=== PATIENT | female | born 1945 | race Caucasian/White ===

== ENCOUNTER 2017-06-28 06:46 | Inpatient (IN) | payer OTHER ==
[~2017-06-28] VITALS: Ht 172.7 cm; Wt 95.9 kg
[2017-06-28] MEDS ORDERED: SODIUM CHLORIDE FLUSH 10ML SYR IVF ONE (07:00)
[2017-06-28 07:19] LABS: INTERNATIONAL NORMALIZED RATIO 0.91 (0.93-1.1); PROTHROMBIN TIME 9.5 Seconds (9.6-11.5)
[2017-06-28 07:20] LABS: BASOPHILS # (AUTO) 0.03 x10^3/uL (0-0.1); BASOPHILS % (AUTO) 1 % (0-1); EOSINOPHILS # (AUTO) 0.09 x10^3/uL (0-0.4); EOSINOPHILS % (AUTO) 2 % (1-7); LYMPHOCYTES % (AUTO) 44 % (22-44); MD NO; MEAN CORPUSCULAR HEMOGLOBIN 31.1 pg (27.0-34.8); MEAN CORPUSCULAR HGB CONC 33.1 g/dL (32.4-35.8); MEAN CORPUSCULAR VOLUME 93.9 fL (80-100); MEAN PLATELET VOLUME 9.4 fL (7.4-10.4); MONOCYTES # (AUTO) 0.33 x10^3/uL (0.2-0.8); MONOCYTES % (AUTO) 6 % (2-9); NEUTROPHILS % (AUTO) 49 % (42-75); PLATELET COUNT 111 x10^3/uL (130-400); RED BLOOD COUNT 4.29 x10^6/uL (3.82-5.3); RED CELL DISTRIBUTION WIDTH 14.8 % (9.6-15.2)
[2017-06-28 07:22] LABS: ALANINE AMINOTRANSFERASE 18 U/L (12-78); ALBUMIN 3.3 g/dL (3.4-5.0); ANION GAP 7 mmol/L (5-15); CALCIUM 8.6 mg/dL (8.5-10.1); CHLORIDE 111 mmol/L (98-107); CREATININE 0.84 mg/dL (0.55-1.02)
[2017-06-28 07:24] LABS: ALKALINE PHOSPHATASE 103 U/L (45-117); BILIRUBIN,TOTAL 0.5 mg/dL (0.2-1.0); TOTAL PROTEIN 7.2 g/dL (6.4-8.2)
[2017-06-28] MEDS ORDERED: ASPIRIN 300 MG SUPP PR ONE (08:00)
[2017-06-28] MEDS ORDERED: ASPIRIN 325 MG TABLET ONE (08:42)
[2017-06-28 09:23] VITALS: BP 134/68
[2017-06-28] MEDS ORDERED: ENALAPRILAT 1.25 MG/ML, 2ML IVPush PRN (12:00)
[2017-06-28] MEDS ORDERED: POLYETHYLENE GLYCOL 17 GM PACKET PO PRN (12:00)
[2017-06-28] MEDS: SENNA/DOCUSATE TABLET PO SCH (12:00)
[2017-06-28] MEDS ORDERED: ONDANSETRON 2MG/ML, 2ML IVPush PRN (12:00)
[2017-06-28] MEDS ORDERED: BISACODYL 10 MG SUPP PR PRN (12:00)
[2017-06-28] MEDS ORDERED: morphine SULFATE 10 MG/ML, 1ML IVPush PRN (12:00)
[2017-06-28] MEDS ORDERED: OXYcodone IR 5MG TABLET PO PRN (12:00)
[2017-06-28] MEDS ORDERED: hydrALAzine 20 MG/ML, 1ML IVPush PRN (12:00)
[2017-06-28 12:23] LABS: FREE T4 (FREE THYROXINE) 0.97 ng/dL (0.76-1.46); THYROID STIMULATING HORMONE 5.86 mIU/L (0.358-3.740)
[2017-06-28 13:44] LABS: HEMOGLOBIN A1C 5.9 % (4.2-6.3)
[2017-06-28] MEDS ORDERED: GADOBUTROL 10 MMOL/10 ML VIAL ONE (13:49)
[2017-06-28] MEDS: D5%-0.9% NACL+KCL 20MEQ 1,000 ML IV SCH (13:53)
[2017-06-28] MEDS: NICOTINE 14MG/24 HR PATCH.TD24 TD SCH (13:53)
[2017-06-28] MEDS: HEPARIN 5,000 UNITS/ML, 1ML SQ SCH ×2 (13:53→21:00)
[2017-06-28 14:24] VITALS: BP_SYST 139; BP_SYST 193; BP_DIAS 65; BP_DIAS 96
[2017-06-28 15:39] LABS: CULTURE INDICATED? NO; MICROSCOPIC NOT IND
[2017-06-28] MEDS ORDERED: ASPI-515 PO (18:27)
[2017-06-28] MEDS ORDERED: iron PO (18:27)
[2017-06-28] MEDS ORDERED: CYAN-10 PO (18:27)
[2017-06-28] MEDS ORDERED: ROPI1TAB2 PO (18:27)
[2017-06-28] MEDS ORDERED: CHOL10003 PO (18:27)
[2017-06-28] MEDS ORDERED: ATOR10TA PO (18:27)
[2017-06-28 20:50] VITALS: BP 144/85
[2017-06-28] MEDS: ATORVASTATIN 20 MG TABLET PO SCH (21:00)
[2017-06-29] MEDS: D5%-0.9% NACL+KCL 20MEQ 1,000 ML IV SCH (01:35)
[2017-06-29 01:52] VITALS: BP 135/75
[2017-06-29] MEDS: HEPARIN 5,000 UNITS/ML, 1ML SQ SCH ×2 (04:41→15:14)
[2017-06-29 05:55] LABS: BASOPHILS # (AUTO) 0.13 x10^3/uL (0-0.1); BASOPHILS % (AUTO) 1 % (0-1); EOSINOPHILS # (AUTO) 0.05 x10^3/uL (0-0.4); EOSINOPHILS % (AUTO) 1 % (1-7); LYMPHOCYTES # (AUTO) 1.91 x10^3/uL (1-3.4); LYMPHOCYTES % (AUTO) 18 % (22-44); MD NO; MEAN CORPUSCULAR HEMOGLOBIN 31.5 pg (27.0-34.8); MEAN CORPUSCULAR HGB CONC 33.8 g/dL (32.4-35.8); MEAN CORPUSCULAR VOLUME 93.2 fL (80-100); MEAN PLATELET VOLUME 8.8 fL (7.4-10.4); MONOCYTES # (AUTO) 0.63 x10^3/uL (0.2-0.8); MONOCYTES % (AUTO) 6 % (2-9); NEUTROPHILS # (AUTO) 7.71 x10^3/uL (1.8-6.8); NEUTROPHILS % (AUTO) 74 % (42-75); PLATELET COUNT 316 x10^3/uL (130-400); RED BLOOD COUNT 4.42 x10^6/uL (3.82-5.3); RED CELL DISTRIBUTION WIDTH 14.7 % (9.6-15.2)
[2017-06-29] MEDS ORDERED: ASPIRIN 325 MG TABLET EC PO SCH (06:00)
[2017-06-29 06:01] LABS: ALBUMIN 2.8 g/dL (3.4-5.0); ANION GAP 7 mmol/L (5-15); CALCIUM 8.4 mg/dL (8.5-10.1); CHLORIDE 113 mmol/L (98-107)
[2017-06-29 06:08] LABS: ALANINE AMINOTRANSFERASE 13 U/L (12-78); ALKALINE PHOSPHATASE 90 U/L (45-117); BILIRUBIN,TOTAL 0.8 mg/dL (0.2-1.0); CHOL/HDL RATIO 4.3; CHOLESTEROL, TOTAL 136 mg/dL (140-239); CREATININE 0.72 mg/dL (0.55-1.02); HDL CHOL % 24 % (28-40); HDL CHOLESTEROL (DIRECT) 32 mg/dL (40-60); LDL CHOLESTEROL,CALCULATED 78 mg/dL (54-169); LDL/HDL RATIO 2.4 (0.5-3.0); TOTAL PROTEIN 6.3 g/dL (6.4-8.2); TRIGLYCERIDES 130 mg/dL (50-200); VLDL CHOLESTEROL 26 mg/dL (0-25)
[2017-06-29 07:36] VITALS: BP 133/71
[2017-06-29] MEDS: SENNA/DOCUSATE TABLET PO SCH (08:18)
[2017-06-29] MEDS: NICOTINE 14MG/24 HR PATCH.TD24 TD SCH (12:00)
[2017-06-29 12:03] VITALS: BP 141/70
[2017-06-29] MEDS: LISINOPRIL 10 MG TABLET PO SCH (15:00)
[2017-06-29] MEDS ORDERED: ATORVASTATIN 20 MG TABLET PO ONE (15:00)
[2017-06-29] MEDS: ASPIRIN 325 MG TABLET PO SCH (15:13)
[2017-06-29 20:00] VITALS: BP 131/64
[2017-06-29] MEDS: ATORVASTATIN 20 MG TABLET PO SCH (22:28)
[2017-06-30] MEDS: HEPARIN 5,000 UNITS/ML, 1ML SQ SCH ×3 (01:14→17:11)
[2017-06-30 02:00] VITALS: BP 130/76
[2017-06-30] MEDS: ASPIRIN 325 MG TABLET PO SCH (06:28)
[2017-06-30 07:35] VITALS: BP 137/71
[2017-06-30] MEDS: LISINOPRIL 10 MG TABLET PO SCH (08:56)
[2017-06-30] MEDS: SENNA/DOCUSATE TABLET PO SCH (08:56)
[2017-06-30 11:04] LABS: BASOPHILS # (AUTO) 0.11 x10^3/uL (0-0.1); BASOPHILS % (AUTO) 1 % (0-1); EOSINOPHILS % (AUTO) 1 % (1-7); LYMPHOCYTES # (AUTO) 1.95 x10^3/uL (1-3.4); LYMPHOCYTES % (AUTO) 18 % (22-44); MD NO; MEAN CORPUSCULAR HEMOGLOBIN 31.4 pg (27.0-34.8); MEAN CORPUSCULAR HGB CONC 33.4 g/dL (32.4-35.8); MEAN PLATELET VOLUME 9.1 fL (7.4-10.4); MONOCYTES # (AUTO) 0.81 x10^3/uL (0.2-0.8); MONOCYTES % (AUTO) 7 % (2-9); NEUTROPHILS # (AUTO) 8.19 x10^3/uL (1.8-6.8); NEUTROPHILS % (AUTO) 73 % (42-75); PLATELET COUNT 348 x10^3/uL (130-400); RED BLOOD COUNT 4.64 x10^6/uL (3.82-5.3); RED CELL DISTRIBUTION WIDTH 14.9 % (9.6-15.2)
[2017-06-30] MEDS: NICOTINE 14MG/24 HR PATCH.TD24 TD SCH (11:24)
[2017-06-30 11:39] LABS: ALBUMIN 3.2 g/dL (3.4-5.0); ANION GAP 8 mmol/L (5-15); CHLORIDE 107 mmol/L (98-107)
[2017-06-30 11:41] LABS: ALANINE AMINOTRANSFERASE 22 U/L (12-78); ALKALINE PHOSPHATASE 105 U/L (45-117); BILIRUBIN,TOTAL 1.1 mg/dL (0.2-1.0); CREATININE 0.81 mg/dL (0.55-1.02); TOTAL PROTEIN 7.2 g/dL (6.4-8.2)
[2017-06-30] MEDS: CLOPIDOGREL 75 MG TABLET PO SCH (12:30)
[2017-06-30 13:40] VITALS: BP 124/73
[2017-06-30 20:00] VITALS: BP 134/71
[2017-06-30] MEDS: ATORVASTATIN 20 MG TABLET PO SCH (21:46)
[2017-07-01] MEDS: HEPARIN 5,000 UNITS/ML, 1ML SQ SCH ×3 (01:16→17:07)
[2017-07-01 01:56] VITALS: BP 148/84
[2017-07-01] MEDS: LEVOTHYROXINE 50 MCG TABLET PO SCH (05:39)
[2017-07-01] MEDS: ASPIRIN 325 MG TABLET PO SCH (05:39)
[2017-07-01] MEDS ORDERED: FUROSEMIDE 20 MG/2 ML IV ONE (08:30)
[2017-07-01 08:56] VITALS: BP 125/66
[2017-07-01] MEDS: SENNA/DOCUSATE TABLET PO SCH (09:00)
[2017-07-01] MEDS: CEFTRIAXONE 1,000 MG in SODIUM CHLORIDE 0.9% 50 ML IV SCH (09:07)
[2017-07-01] MEDS: DOXYCYCLINE 100MG TABLET PO SCH ×2 (09:07→20:42)
[2017-07-01] MEDS: LISINOPRIL 20 MG TABLET PO SCH (09:08)
[2017-07-01] MEDS: CLOPIDOGREL 75 MG TABLET PO SCH (09:18)
[2017-07-01] MEDS: NICOTINE 14MG/24 HR PATCH.TD24 TD SCH (11:57)
[2017-07-01 13:02] VITALS: BP 122/64
[2017-07-01 20:00] VITALS: BP 112/69
[2017-07-01] MEDS: ATORVASTATIN 20 MG TABLET PO SCH (20:42)
[2017-07-02 01:26] VITALS: BP 114/67
[2017-07-02] MEDS: HEPARIN 5,000 UNITS/ML, 1ML SQ SCH ×3 (01:33→20:20)
[2017-07-02] MEDS: ASPIRIN 325 MG TABLET PO SCH (05:15)
[2017-07-02] MEDS: LEVOTHYROXINE 50 MCG TABLET PO SCH (05:15)
[2017-07-02 07:23] VITALS: BP 120/75
[2017-07-02] MEDS: SENNA/DOCUSATE TABLET PO SCH (09:00)
[2017-07-02] MEDS: DOXYCYCLINE 100MG TABLET PO SCH ×2 (09:37→20:20)
[2017-07-02] MEDS: LISINOPRIL 20 MG TABLET PO SCH (09:39)
[2017-07-02] MEDS: CLOPIDOGREL 75 MG TABLET PO SCH (09:41)
[2017-07-02] MEDS: CEFTRIAXONE 1,000 MG in SODIUM CHLORIDE 0.9% 50 ML IV SCH (09:53)
[2017-07-02 14:05] VITALS: BP 124/82
[2017-07-02] MEDS: NICOTINE 14MG/24 HR PATCH.TD24 TD SCH (16:08)
[2017-07-02 20:00] VITALS: BP 113/72
[2017-07-02] MEDS: ATORVASTATIN 20 MG TABLET PO SCH (20:21)
[2017-07-03 01:34] VITALS: BP 99/64
[2017-07-03] MEDS: HEPARIN 5,000 UNITS/ML, 1ML SQ SCH ×3 (05:36→20:07)
[2017-07-03] MEDS: LEVOTHYROXINE 50 MCG TABLET PO SCH (05:37)
[2017-07-03] MEDS: ASPIRIN 325 MG TABLET PO SCH (05:37)
[2017-07-03 08:00] VITALS: BP 94/60
[2017-07-03] MEDS: SENNA/DOCUSATE TABLET PO SCH (09:00)
[2017-07-03] MEDS ORDERED: FUROSEMIDE 20 MG TABLET PO SCH (09:00)
[2017-07-03] MEDS: LISINOPRIL 10 MG TABLET PO SCH (09:00)
[2017-07-03] MEDS: DOXYCYCLINE 100MG TABLET PO SCH ×2 (09:21→20:07)
[2017-07-03] MEDS: CLOPIDOGREL 75 MG TABLET PO SCH (09:21)
[2017-07-03] MEDS: CEFTRIAXONE 1,000 MG in SODIUM CHLORIDE 0.9% 50 ML IV SCH (09:21)
[2017-07-03 10:44] VITALS: BP 128/72
[2017-07-03] MEDS: NICOTINE 14MG/24 HR PATCH.TD24 TD SCH (12:29)
[2017-07-03 14:40] VITALS: BP 106/70
[2017-07-03 19:15] VITALS: BP 107/71
[2017-07-03] MEDS: ATORVASTATIN 20 MG TABLET PO SCH (20:06)
[2017-07-04 02:20] VITALS: BP 105/67
[2017-07-04] MEDS: LEVOTHYROXINE 50 MCG TABLET PO SCH (06:06)
[2017-07-04] MEDS: ASPIRIN 325 MG TABLET PO SCH (06:06)
[2017-07-04] MEDS: HEPARIN 5,000 UNITS/ML, 1ML SQ SCH (06:06)
[2017-07-04 06:59] VITALS: BP 107/70
[2017-07-04] MEDS: CEFTRIAXONE 1,000 MG in SODIUM CHLORIDE 0.9% 50 ML IV SCH (09:16)
[2017-07-04] MEDS: LISINOPRIL 10 MG TABLET PO SCH ×2 (09:16→09:23)
[2017-07-04] MEDS: DOXYCYCLINE 100MG TABLET PO SCH (09:16)
[2017-07-04] MEDS: CLOPIDOGREL 75 MG TABLET PO SCH (09:16)
[2017-07-04] MEDS: SENNA/DOCUSATE TABLET PO SCH (09:17)
[2017-07-04] MEDS ORDERED: CLOP75TA PO (11:52)
[2017-07-04] MEDS ORDERED: SENN1TAB7 PO (11:52)
[2017-07-04] MEDS ORDERED: LEVO50TA PO (11:52)
[2017-07-04] MEDS ORDERED: ASPI325T17 PO (11:52)
[2017-07-04] MEDS ORDERED: ATOR20TA9 PO (11:52)
[2017-07-04] MEDS ORDERED: CEFD300C37 PO (11:52)
[2017-07-04] MEDS ORDERED: DOXY100T10 PO (11:52)
[2017-07-04] MEDS: NICOTINE 14MG/24 HR PATCH.TD24 TD SCH (12:08)
[2017-07-04 13:02] VITALS: BP 108/70
== END 2017-07-04 15:47 | DRG 64 ==
LOC: ED 07:51 → EDIP 07:52 → ED 08:03 → 4WST 10:50
PROVIDERS: ADMIT Family Medicine; ATTEND Family Medicine
PROC: 0T9B70Z Drainage of Bladder with Drainage Device, Via Natural or Artificial Opening (ICD-10-PCS; principal; 2017-06-28)
DX: I63.413 Cerebral infarction due to embolism of bilateral middle cerebral arteries (principal); J18.9 Pneumonia, unspecified organism; E44.0 Moderate protein-calorie malnutrition; G81.91 Hemiplegia, unspecified affecting right dominant side; I44.1 Atrioventricular block, second degree; R13.10 Dysphagia, unspecified; R41.4 Neurologic neglect syndrome; R00.1 Bradycardia, unspecified; R47.01 Aphasia; E61.1 Iron deficiency; E78.5 Hyperlipidemia, unspecified; G25.81 Restless legs syndrome; E66.3 Overweight; F17.200 Nicotine dependence, unspecified, uncomplicated; G89.29 Other chronic pain; I10 Essential (primary) hypertension; I25.10 Atherosclerotic heart disease of native coronary artery without angina pectoris; I65.23 Occlusion and stenosis of bilateral carotid arteries; M54.5 Low back pain; R41.82 Altered mental status, unspecified; R60.9 Edema, unspecified; D72.829 Elevated white blood cell count, unspecified; Z79.82 Long term (current) use of aspirin; Z88.0 Allergy status to penicillin
CPT/HCPCS: 36415; 70450; 70544; 70549; 70553; 71045; 80053; 80061; 81003; 82962; 83036; 83735; 84439; 84443; 85025; 85610; 85730; 86703; 86803; 87340; 87899; 93005; 93880; 99291; A9585; C8929; J0696; J1644; 92523-GN; G0435; J1940; J3480